=== PATIENT | male | born 1980 | race Caucasian/White ===

== ENCOUNTER 2017-01-03 10:32 | Emergency (ER) | payer OTHER ==
[~2017-01-03] VITALS: Ht 172.7 cm; Wt 86.0 kg
[2017-01-03 10:36] VITALS: TEMP 36.9; Ht 172.7 cm; Wt 86.0 kg
[2017-01-03] MEDS ORDERED: OXYCODONE HCL IR 5 MG TAB (IMMEDIATE RELEASE) PO STA ×2 (10:48→13:59)
--- NOTE | 2017-01-03 11:01 | EMERGENCY ROOM VISIT NOTE ---
History Report prepared by Tahir: Kalina Thomason Under the Supervision of: Nasreen BernabeO. First contact with patient: 10:41 Chief Complaint: KNEEPAIN Stated Complaint: POSSIBLE SEPTIC KNEE History of Present Illness The patient is a 36 year old male who presents to the Emergency Room with complaints of persistent left knee pain that began three weeks ago. He currently rates his discomfort as a 6/10 in severity he describes his pain as a cramping pain. The patient states that he noticed the swelling three weeks ago and states that it has been worsening. He states that he went to medical at the long term and had 1800 cc of fluid drained from his knee last Tuesday. The patient states that within two hours of draining, the area swelled bigger than it ever had been. He denies any injury to the area. The patient states that he has developed a fever of 101 degrees Fahrenheit. He states that he was given Toradol IM prior to arrival and was told that his knee may be septic. The patient denies any history of IV drug use or any active medical problems. He states that he uses tobacco daily. Source of History: patient Onset: three weeks ago Position: knee (left) Symptom Intensity: 6/10 Quality: cramping, other (swelling) Timing: worsening, other (persistent) Review of Systems See HPI for pertinent positives & negatives. A total of 10 systems reviewed and were otherwise negative. Past Medical & Surgical No active medical problems Social History Smoking Status: Current Every Day Smoker Smokeless Tobacco Use: Yes Drug Use: none Current/Historical Medications Scheduled Cephalexin Monohydrate (Keflex), 500 MG PO QID Scheduled PRN Oxycodone Immediate Rel Tab (Roxicodone Ir), 1-2 TAB PO Q4H PRN for Severe Pain Allergies Coded Allergies: No Known Allergies (Unverified , 01/03/17) Physical Exam Vital Signs Date Time Temp Pulse Resp B/P Pulse Ox O2 Delivery O2 Flow Rate FiO2 01/03/17 16:23 66 16 112/75 97 01/03/17 15:38 67 16 120/69 98 01/03/17 14:16 68 16 118/78 97 01/03/17 12:25 68 18 124/71 96 01/03/17 10:36 36.9 82 18 127/85 98 Room Air Physical Exam GENERAL: Patient is awake, alert, and in no acute distress. Patient is resting comfortably and showing no signs of anxiety EYES: The conjunctivae are clear. The pupils are round and reactive. EARS, NOSE, MOUTH AND THROAT: The nose is without any evidence of any deformity. Mucous membranes are moist tongue is midline NECK: The neck is nontender and supple. RESPIRATORY: Normal respiratory effort is noted there is no evidence of wheezing rhonchi or rales CARDIOVASCULAR: Regular rate and rhythm noted there no murmurs rubs or gallops normal S1 normal S2 GASTROINTESTINAL: The abdomen is soft. Bowel sounds are present in all quadrants. Abdomen is nontender MUSCULOSKELETAL/EXTREMITIES: Effusion noted to the left knee with symmetric swelling. No warmth compared to right knee. Significant posterior popliteal tenderness as well as erythema and swelling in left calf. range of motion elicited pain. SKIN: No pedal edema noted. There is no obvious evidence of any rash. There are no petechiae, pallor or cyanosis noted. NEUROLOGIC: Patient is awake alert and oriented x3. Medical Decision & Procedures ER Provider Diagnostic Interpretation: X ray results and stated below per my interpretation and radiology interpretation. Other radiology results per my review and radiologist interpretation: LEFT KNEE 2 VIEWS CLINICAL HISTORY: Left knee swelling. FINDINGS: AP and crosstable lateral views of the left knee are obtained. No prior studies are available for comparison at the time of dictation. The skeletal structures are well mineralized. No fracture is seen. The joint spaces of the knee are well-maintained. There is prepatellar soft tissue swelling. A small joint effusion is suspected. IMPRESSION: Small joint effusion and prepatellar soft tissue swelling. No acute bony abnormality is seen. Electronically signed by: Stewart Cordero M.D. 01/03/2017 11:08 AM Dictated Date/Time: 01/03/2017 11:07 AM Venous Doppler left leg LEFT VENOUS DOPP LOWER EXT UNILAT CLINICAL HISTORY: LLE swelling pain. Edema. TECHNIQUE: Venous Doppler COMPARISON STUDY: None FINDINGS: No evidence for deep venous thrombosis. Linear slightly complex fluid collection extending from the popliteal fossa to the mid calf. This measures 11 x 2 cm. This may represent a partially ruptured popliteal cyst. IMPRESSION: 1. Study is negative for deep venous thrombosis. 2. 11 x 2 cm complex fluid collection posterior left calf possibly representing a partially ruptured popliteal cyst. Electronically signed by: Juan C Arredondo M.D. 01/03/2017 12:14 PM Dictated Date/Time: 01/03/2017 12:12 PM Laboratory Results 01/03/17 11:00 Red Blood Count 4.28, Mean Corpuscular Volume 92.1, Mean Corpuscular Hemoglobin 31.8, Mean Corpuscular Hemoglobin Concent 34.5, Mean Platelet Volume 9.6, Neutrophils (%) (Auto) 69.6, Lymphocytes (%) (Auto) 23.2, Monocytes (%) (Auto) 4.9, Eosinophils (%) (Auto) 1.3, Basophils (%) (Auto) 0.8, Neutrophils # (Auto) 8.03, Lymphocytes # (Auto) 2.67, Monocytes # (Auto) 0.56, Eosinophils # (Auto) 0.15, Basophils # (Auto) 0.09 01/03/17 11:00 Test 01/03/17 00:00 01/03/17 11:00 Synovial Fluid Source KNEE Synovial Fluid Color RED Synovial Fluid Appearance CLOUDY Synovial Fluid WBC 7009 /uL (0-200) Synovial Fluid RBC 80139 /uL Synovial Fluid Polynuclear WBCs % 92.1 % Synovial Fluid Mononuclear WBCs % 7.9 % White Blood Count 11.52 K/uL (4.8-10.8) Red Blood Count 4.28 M/uL (4.7-6.1) Hemoglobin 13.6 g/dL (14.0-18.0) Hematocrit 39.4 % (42-52) Mean Corpuscular Volume 92.1 fL (80-100) Mean Corpuscular Hemoglobin 31.8 pg (25-34) Mean Corpuscular Hemoglobin Concent 34.5 g/dl (32-36) Platelet Count 530 K/uL (130-400) Mean Platelet Volume 9.6 fL (7.4-10.4) Neutrophils (%) (Auto) 69.6 % Lymphocytes (%) (Auto) 23.2 % Monocytes (%) (Auto) 4.9 % Eosinophils (%) (Auto) 1.3 % Basophils (%) (Auto) 0.8 % Neutrophils # (Auto) 8.03 K/uL (1.4-6.5) Lymphocytes # (Auto) 2.67 K/uL (1.2-3.4) Monocytes # (Auto) 0.56 K/uL (0.11-0.59) Eosinophils # (Auto) 0.15 K/uL (0-0.5) Basophils # (Auto) 0.09 K/uL (0-0.2) RDW Standard Deviation 44.3 fL (36.4-46.3) RDW Coefficient of Variation 13.2 % (11.5-14.5) Immature Granulocyte % (Auto) 0.2 % Immature Granulocyte # (Auto) 0.02 K/uL (0.00-0.02) Erythrocyte Sedimentation Rate 73 mm/hr (0-14) Anion Gap 8.0 mmol/L (3-11) Est Creatinine Clear Calc Drug Dose 147.2 ml/min Estimated GFR () 137.5 Estimated GFR (Non- 118.7 BUN/Creatinine Ratio 13.1 (10-20) Calcium Level 10.5 mg/dl (8.5-10.1) Total Bilirubin 0.3 mg/dl (0.2-1) Direct Bilirubin < 0.1 mg/dl (0-0.2) Aspartate Amino Transf (AST/SGOT) 13 U/L (15-37) Alanine Aminotransferase (ALT/SGPT) 21 U/L (12-78) Alkaline Phosphatase 88 U/L (45-117) C-Reactive Protein 5.89 mg/dl (0-0.29) Total Protein 7.5 gm/dl (6.4-8.2) Albumin 2.9 gm/dl (3.4-5.0) Lipase 126 U/L (73-393) Laboratory results per my review. Medications Administered Medications (Trade) Dose Ordered Sig/Clint Route Start Time Stop Time Status Last Admin Dose Admin Oxycodone HCl 5 mg 5 mg NOW STAT PO 01/03/17 10:48 01/03/17 10:50 DC 01/03/17 10:56 5 MG Sodium Chloride (Nss 1000ml) 1,000 ml @ 999 mls/hr Q1H1M STAT IV 01/03/17 13:59 01/03/17 14:59 DC 01/03/17 14:19 999 MLS/HR Ceftriaxone Sodium (Rocephin Inj) 1 gm NOW STAT IV 01/03/17 13:59 01/03/17 14:02 DC 01/03/17 14:19 1 GM Oxycodone HCl (Roxicodone Immediate Rel Tab) 5 mg NOW STAT PO 01/03/17 13:59 01/03/17 14:02 DC 01/03/17 14:17 5 MG Procedure Left knee arthrocentesis Indication: Fever and effusion Location: left knee Verbal consent was obtained after the risks and benefits were explained, including but not limited to bleeding, scarring, infection, pain, and bone/joint /nerve damage. At this time, the risks of the procedure are less than the risks of NOT performing the procedure. A time out was taken and the correct patient and site identified. The skin was prepped with betadine and a sterile field set. The wound was anesthetized with 0.5 ml of 1% lidocaine without epinephrine. The abscess cavity was entered with a number 11 blade and serosanguineous material expressed. No complications and the patient tolerated the procedure well. ED Course 1046: The patient was evaluated in room C4. A complete history and physical examination were performed. 1048: Ordered Oxycodone HCl 5 mg PO. 1230: Ordered Lidocaine HCl 20 ml INFIL. 1345: I drained the patient's knee at this time. See procedure note for further detail. 1359: Ordered Oxycodone HCl 5 mg PO, Rocephin Inj 1 gm IV, Sodium Chloride 1000 ml @ 999 mls/hr IV. 1433: I discussed the patients case with Dr. Garcia, Orthopedics. He said that I need to discuss the patients case with Dr. Benton, Orthopedics. 1532: I discussed the patients here with [facility] and Dr. Benton, Orthopedics. Dr. Benton, Orthopedics states that the patient can be discharged and he states that the patient can follow up with him in the office. 1550: I reevaluated the patient and he is resting comfortably. I discussed the exam findings with him and I discussed the treatment plan. He verbalized complete understanding and agreement. He is ready to go back to the long term. Medical Decision Differential diagnosis: Etiologies such as DVT, musculoskeletal, infection, joint effusion, trauma, lymphedema, idiopathic, CHF, as well as others were entertained. Nursing notes reviewed. The patient is a 36-year-old male who presented to the emergency department for an evaluation of left knee pain. The patient had an effusion which was drained at the end of November at the long term. He started having worsening pain but then started noticing swelling and pain behind his left knee. The patient's ultrasound did not show DVT but did show the possibility of a ruptured popliteal cyst. The patient was treated with IV pain antibiotics emergency department. He was also treated with pain medication. On subsequent reevaluation he was feeling much better. Arthrocentesis was done and did not reveal a white blood cell count consistent with an infectious process. The patient was continued on antibiotics. I discussed his case with the on-call orthopedic group. They've agreed to see the patient in the office for further evaluation. The patient was encouraged to return to the emergency apartment immediately if symptoms change worsen or the need arises. Consults Additional Consults: Time Called: 1435 Consulted Physician: [facility], Dr. [facility] Returned Call: [phone] Additional Comments: I discussed the patients here with Janee Zuluaga PA-C and Dr. Benton, Orthopedics. Dr. Benton, Orthopedics states that the patient can be discharged and he states that the patient can follow up with him in the office. Impression Primary Impression: Left knee pain Additional Impressions: Effusion, left knee Rupture of popliteal cyst Scribe Attestation The scribe's documentation has been prepared under my direction and personally reviewed by me in its entirety. I confirm that the note above accurately reflects all work, treatment, procedures, and medical decision making performed by me. Departure Information Dispostion Home / Self-Care Prescriptions Cephalexin Monohydrate (KEFLEX) 500 Mg Cap 500 MG PO QID, #28 CAP Prov: Christian Haddad, 01/03/17 Oxycodone Immediate Rel Tab (ROXICODONE IR) 5 Mg Tab 1-2 TAB PO Q4H Y for Severe Pain, #24 TAB Prov: Christian Haddad, 01/03/17 Referrals [facility] SNIDER (PCP) Forms HOME CARE DOCUMENTATION FORM, IMPORTANT VISIT INFORMATION Patient Instructions ED [facility] Additional Instructions Continue to use the Dusty wrap as instructed. Keep the leg elevated as much as possible. Call the orthopedic physician to schedule a follow-up appointment. Continue all medications as prescribed. Continue using Motrin and Tylenol as directed for mild pain. Problem Qualifiers
--- NOTE | 2017-01-03 11:09 | DIAGNOSTIC IMAGING REPORT ---
LEFT KNEE 2 VIEWS CLINICAL HISTORY: Left knee swelling. FINDINGS: AP and crosstable lateral views of the left knee are obtained. No prior studies are available for comparison at the time of dictation. The skeletal structures are well mineralized. No fracture is seen. The joint spaces of the knee are well-maintained. There is prepatellar soft tissue swelling. A small joint effusion is suspected. IMPRESSION: Small joint effusion and prepatellar soft tissue swelling. No acute bony abnormality is seen. Electronically signed by: Stewart Cordero M.D. 01/03/2017 11:08 AM Dictated Date/Time: 01/03/2017 11:07 AM
[2017-01-03 11:21] LABS: BASO % 0.8 %; BASO ABS # 0.09 K/uL (0-0.2); COMPLETE YES; EOS % 1.3 %; HEMATOCRIT 39.4 % (42-52); IG% 0.2 %; LYMPH % 23.2 %; LYMPH ABS # 2.67 K/uL (1.2-3.4); MEAN CELL VOLUME 92.1 fL (80-100); MEAN CORPUSCULAR HEMOGLOBIN 31.8 pg (25-34); MEAN CORPUSCULAR HGB CONC 34.5 g/dl (32-36); MEAN PLATELET VOLUME 9.6 fL (7.4-10.4); MONO % 4.9 %; NEUT % 69.6 %; PLATELET COUNT 530 K/uL (130-400); RED BLOOD COUNT 4.28 M/uL (4.7-6.1); WHITE BLOOD COUNT 11.52 K/uL (4.8-10.8)
[2017-01-03 11:37] LABS: ALT/SGPT 21 U/L (12-78); BLOOD UREA NITROGEN 10 mg/dl (7-18); BUN/CREATININE RATIO 13.1 (10-20); C-REACTIVE PROTEIN 5.89 mg/dl (0-0.29); CALCIUM 10.5 mg/dl (8.5-10.1); CARBON DIOXIDE 22 mmol/L (21-32); CHLORIDE 106 mmol/L (98-107); CREATININE 0.74 mg/dl (0.60-1.40); GLUCOSE 87 mg/dl (70-99); POTASSIUM 4.7 mmol/L (3.5-5.1); SODIUM 136 mmol/L (136-145)
[2017-01-03 11:40] LABS: ALKALINE PHOSPHATASE 88 U/L (45-117); AST/SGOT 13 U/L (15-37)
--- NOTE | 2017-01-03 12:15 | DIAGNOSTIC IMAGING REPORT ---
Venous Doppler left leg LEFT VENOUS DOPP LOWER EXT UNILAT CLINICAL HISTORY: LLE swelling pain. Edema. TECHNIQUE: Venous Doppler COMPARISON STUDY: None FINDINGS: No evidence for deep venous thrombosis. Linear slightly complex fluid collection extending from the popliteal fossa to the mid calf. This measures 11 x 2 cm. This may represent a partially ruptured popliteal cyst. IMPRESSION: 1. Study is negative for deep venous thrombosis. 2. 11 x 2 cm complex fluid collection posterior left calf possibly representing a partially ruptured popliteal cyst. Electronically signed by: Juan C Arredondo M.D. 01/03/2017 12:14 PM Dictated Date/Time: 01/03/2017 12:12 PM
[2017-01-03] MEDS ORDERED: XYLOCAINE 1%/SOD BICARB 20 ML VIAL INFIL ONE (12:30)
[2017-01-03] MEDS ORDERED: SODIUM CHLORIDE 0.9% 1000ML 1,000 ML IV STA (13:59)
[2017-01-03] MEDS ORDERED: CEFTRIAXONE SOD INJ 1 GM ADDVIAL IV STA (13:59)
[2017-01-03 15:24] LABS: SYNOVIAL FLUID APPEARANCE CLOUDY; SYNOVIAL FLUID COLOR RED; SYNOVIAL FLUID MONONUC RELAT 7.9 %; SYNOVIAL FLUID POLYNUC RELAT 92.1 %
[2017-01-03] MEDS ORDERED: OXYC1TAB3 PO (15:54)
[2017-01-03] MEDS ORDERED: CEPH500C2 PO (15:54)
[2017-01-03 16:23] VITALS: BP 112/75; PULSE 66; O2SAT 97
== END 2017-01-03 16:24 ==
LOC: C.EDB 10:35 → C.EDC 16:24
DX: M25.562 Pain in left knee (principal); M25.462 Effusion, left knee; M66.0 Rupture of popliteal cyst; M79.89 Other specified soft tissue disorders; R50.9 Fever, unspecified; F17.200 Nicotine dependence, unspecified, uncomplicated